=== PATIENT | female | born 1975 | race American Indian/Alaskan Native ===

== ENCOUNTER 2018-02-24 13:30 | Inpatient (IN) | payer MEDICAID ==
--- NOTE | 2018-02-24 14:23 | EDM.PDOC ---
ED HPI GENERAL MEDICAL PROBLEM - General Chief Complaint: Respiratory Problem Stated Complaint: ?PNEUMONIA Time Seen by Provider: 02/24/18 13:57 Source of Information: Reports: Patient History Limitations: Reports: No Limitations - History of Present Illness INITIAL COMMENTS - FREE TEXT/NARRATIVE: Juliet is a 42 year old female with PMH of fibromyalgia and hypertension who presents to the ED with c/o cough, fever, and shortness of breath. She reports she was seen on 02/22/2018 by Kavita Mcdaniel NP in [place] and told she had pneumonia. She reports she was started on Levaquin and breathing treatments. She reports she went in to see her again today and was told she could go to the ED to be admitted. Rather than presenting to [place]'s ED, she decided to come to [place]. She reports she has been feeling ill since Thursday02/19/2018. She does not feel the oral antibiotics have helped her. She is not responsive to questions when obtaining ROS, rather her daughter answers the questions for her. Daughter reports she has had a fever, as high as 101.1 deg F the past few days. This is improved by Tylenol. She reports she has had a productive cough, body aches, headache, shortness of breath, dizziness, decreased appetite, nausea, pleuritic chest pain, cough induced vomiting. Denies any sinus congestion, chest pain at rest, abdominal pain, urinary symptoms. Onset Date: 02/19/18 Duration: Getting Worse Location: Reports: Chest Associated Symptoms: Reports: Chest Pain, Cough, cough w sputum, Fever/Chills, Headaches, Loss of Appetite, Malaise, Nausea/Vomiting, Shortness of Breath, Weakness. 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, Other Medication(s) (Levaquin) Generalized Pain Score (Numeric/FACES): 9 - Related Data Allergies Allergy/AdvReac Type Severity Reaction Status Date / Time aspirin Allergy Hallucinati Verified 02/24/18 13:52 ons codeine Allergy Hallucinati Verified 02/24/18 13:52 ons cortisone Allergy Shortness Verified 02/24/18 13:52 of Breath iodine Allergy Cannot Verified 02/24/18 13:52 Remember seafood Allergy Respiratory Uncoded 02/24/18 16:12 Depression surgical dk Allergy Rash Uncoded 02/24/18 13:52 Home Meds: Home Meds Albuterol [Proventil HFA] 2 puff INH Q4H PRN 02/24/18 [History] Benzonatate 100 mg PO TID PRN 02/24/18 [History] Fluticasone/Salmeterol [Advair 250-50 Diskus] 1 puff INH BID 02/24/18 [History] Ipratropium/Albuterol Sulfate [Iprat-Albut 0.5-3(2.5) mg/3 ml] 3 ml IH Q4H PRN 02/24/18 [History] Levofloxacin 500 mg PO DAILY 02/24/18 [History] Ondansetron [Ondansetron Odt] 8 mg PO BID PRN 02/24/18 [History] ED ROS GENERAL - Review of Systems Review Of Systems: See Below Constitutional: Reports: Fever, Chills, Malaise, Weakness, Fatigue, Decreased Appetite HEENT: Denies: Ear Pain, Rhinitis, Sinus Problem, Throat Pain, Throat Swelling Respiratory: Reports: Shortness of Breath, Wheezing, Pleuritic Chest Pain, Cough , Sputum. Denies: Hemoptysis Cardiovascular: Reports: Dyspnea on Exertion, Lightheadedness. Denies: Chest Pain, Edema, Orthopnea, Palpitations, Syncope Endocrine: Reports: Fatigue GI/Abdominal: Reports: Nausea, Vomiting. Denies: Abdominal Pain, Diarrhea, Decreased Appetite : Reports: No Symptoms. Denies: Dysuria, Frequency, Urgency Musculoskeletal: Reports: Neck Pain Skin: Reports: No Symptoms Neurological: Reports: Dizziness, Headache, Weakness. Denies: Confusion, Numbness, Tingling ED EXAM, GENERAL - Physical Exam Exam: See Below Exam Limited By: No Limitations General Appearance: Alert, WD/WN, Moderate Distress Eye Exam: Bilateral Eye: EOMI, Normal Fundi, Normal Inspection, PERRL Ears: Normal External Exam, Normal Canal, Hearing Grossly Normal, Normal TMs Nose: Normal Inspection, Normal Mucosa, No Blood Throat/Mouth: Other (Patient refused) Head: Atraumatic, Normocephalic Neck: Normal Inspection, Supple, Non-Tender, Full Range of Motion Respiratory/Chest: No Respiratory Distress, No Accessory Muscle Use, Decreased Breath Sounds (LLL), Wheezing Cardiovascular: Normal Peripheral Pulses, Regular Rate, Rhythm, No Edema, No Gallop, No JVD, No Murmur, No Rub GI/Abdominal: Normal Bowel Sounds, Soft, Non-Tender, No Organomegaly, No Distention, No Abnormal Bruit, No Mass Back Exam: Normal Inspection, Full Range of Motion. No: CVA Tenderness (L), CVA Tenderness (R) Extremities: Normal Inspection, Normal Range of Motion, Non-Tender, Normal Capillary Refill, No Pedal Edema Neurological: Alert, Oriented, CN II-XII Intact, Normal Cognition, Normal Gait, Normal Reflexes, No Motor/Sensory Deficits Psychiatric: Flat Affect Skin Exam: Warm, Dry, Intact, Normal Color, No Rash Lymphatic: No Adenopathy Course - Vital Signs Last Recorded V/S: Last Vital Signs Temp 99.3 F 02/24/18 15:48 Pulse 86 02/24/18 15:48 Resp 18 02/24/18 15:48 BP 137/77 02/24/18 15:48 Pulse Ox 95 02/24/18 15:48 - Orders/Labs/Meds Orders: Active Orders 24 hr Category Date Time Status Chest 2V [CR] Stat Exams 02/24/18 13:52 Taken CULTURE BLOOD [BC] Stat Lab 02/24/18 14:15 Received CULTURE BLOOD [BC] Stat Lab 02/24/18 14:22 Received Medication Orders Acetaminophen (Tylenol) 650 mg PO Q4H PRN PRN Reason: Pain (Mild 1-3)/fever Albuterol (Ventolin Hfa) 0 gm INH Q4H PRN PRN Reason: Shortness of Breath Albuterol/Ipratropium (Duoneb 3.0-0.5 Mg/3 Ml) 3 ml NEB QID [facility] Last Admin: 02/24/18 16:09 Dose: 3 ml Albuterol/Ipratropium (Duoneb 3.0-0.5 Mg/3 Ml) 3 ml INH Q4H PRN PRN Reason: Shortness of Breath Ceftriaxone Sodium (Rocephin) 1 gm IVPUSH Q24H [facility] Last Admin: 02/24/18 17:04 Dose: 1 gm Enoxaparin Sodium (Lovenox) 40 mg SUBCUT Q24H [facility] Last Admin: 02/24/18 17:08 Dose: Not Given Azithromycin 500 mg/ Sodium (Chloride) 250 mls @ 250 mls/hr IV Q24H [facility] Last Admin: 02/24/18 17:16 Dose: 250 mls/hr Sodium Chloride (Normal Saline) 1,000 mls @ 75 mls/hr IV ASDIRECTED [facility] Last Admin: 02/24/18 16:05 Dose: 75 mls/hr Magnesium Hydroxide (Milk Of Magnesia) 30 ml PO Q12H PRN PRN Reason: Constipation Methylprednisolone Sodium Succinate (Solu-Medrol) 62.5 mg IVPUSH Q24H [facility] Last Admin: 02/24/18 17:04 Dose: 62.5 mg Miscellaneous Information (Remove Patch) 1 ea TRDERM DAILY [facility] Mometasone Furoate/Formoterol Fumar (Dulera 200-5 Mcg) 0 puff IH BIDRT [facility] Nicotine (Habitrol) 14 mg TRDERM DAILY [facility] Last Admin: 02/24/18 17:04 Dose: 14 mg Ptom Benzonatate [Benzonatate] 100 Mg 100 mg PO TID PRN PRN Reason: Cough Ondansetron HCl (Zofran) 4 mg IV Q6H PRN PRN Reason: Nausea/Vomiting Temazepam (Restoril) 15 mg PO BEDTIME PRN PRN Reason: Sleep Labs: Laboratory Tests 02/24/18 02/24/18 02/24/18 Range/Units 14:22 14:22 14:22 WBC 7.9 (5.0-10.0) 10^3/uL RBC 4.29 (4.00-5.50) 10^6/uL Hgb 13.0 (12.0-16.0) g/dL Hct 39.4 (37.0-47.0) % MCV 91.8 (82.0-94.0) fL MCH 30.3 (27.0-32.0) pg MCHC 33.0 (33.0-38.0) g/dL RDW Coeff of Sil 13.2 (11.0-15.0) % Plt Count 214 (150-400) 10^3/uL Neut % (Auto) 52.7 (35-85) % Lymph % (Auto) 34.9 (10-55) % [place] % (Auto) 8.1 (0-16) % Eos % (Auto) 3.9 (0-5) % Baso % (Auto) 0.4 (0-3) % Neut # (Auto) 4.14 (1.80-7.00) 10^3/uL Lymph # (Auto) 2.75 (1.00-4.80) 10^3/uL [place] # (Auto) 0.64 (0.00-0.80) 10^3/uL Eos # (Auto) 0.31 (0.00-0.45) 10^3/uL Baso # (Auto) 0.03 10^3/uL D-Dimer, Quantitative (0.00-0.50) Sodium 142 (136-145) mEq/L Potassium 3.8 (3.5-5.0) mEq/L Chloride 105 (98-106) mEq/L Carbon Dioxide 27 (21-32) mmol/L BUN 6 L (7-18) mg/dL Creatinine 0.9 (0.6-1.0) mg/dL Est Cr Clr Drug Dosing 79.19 mL/min Estimated GFR (MDRD) > 60 (>=60) mL/min Glucose 105 H (75-99) mg/dL Lactic Acid 0.8 (0.4-2.0) mmol/L Calcium 9.5 (8.4-10.1) mg/dL Total Bilirubin 0.3 (0.0-1.0) mg/dL AST 15 (15-37) U/L ALT 26 (12-78) U/L Alkaline Phosphatase 164 H (46-116) U/L C-Reactive Protein 7.2 H (0.2-0.8) mg/dL Total Protein 7.4 (6.4-8.2) g/dL Albumin 3.4 (3.4-5.0) g/dL 02/24/18 Range/Units 14:22 WBC (5.0-10.0) 10^3/uL RBC (4.00-5.50) 10^6/uL Hgb (12.0-16.0) g/dL Hct (37.0-47.0) % MCV (82.0-94.0) fL MCH (27.0-32.0) pg MCHC (33.0-38.0) g/dL RDW Coeff of Sil (11.0-15.0) % Plt Count (150-400) 10^3/uL Neut % (Auto) (35-85) % Lymph % (Auto) (10-55) % [place] % (Auto) (0-16) % Eos % (Auto) (0-5) % Baso % (Auto) (0-3) % Neut # (Auto) (1.80-7.00) 10^3/uL Lymph # (Auto) (1.00-4.80) 10^3/uL [place] # (Auto) (0.00-0.80) 10^3/uL Eos # (Auto) (0.00-0.45) 10^3/uL Baso # (Auto) 10^3/uL D-Dimer, Quantitative 0.79 H (0.00-0.50) Sodium (136-145) mEq/L Potassium (3.5-5.0) mEq/L Chloride (98-106) mEq/L Carbon Dioxide (21-32) mmol/L BUN (7-18) mg/dL Creatinine (0.6-1.0) mg/dL Est Cr Clr Drug Dosing mL/min Estimated GFR (MDRD) (>=60) mL/min Glucose (75-99) mg/dL Lactic Acid (0.4-2.0) mmol/L Calcium (8.4-10.1) mg/dL Total Bilirubin (0.0-1.0) mg/dL AST (15-37) U/L ALT (12-78) U/L Alkaline Phosphatase (46-116) U/L C-Reactive Protein (0.2-0.8) mg/dL Total Protein (6.4-8.2) g/dL Albumin (3.4-5.0) g/dL Meds: Medications Generic Name Dose Route Start Last Admin Trade Name Freq PRN Reason Stop Dose Admin Acetaminophen 650 mg 02/24/18 15:48 Tylenol PO Q4H PRN Pain (Mild 1-3)/fever Albuterol 0 gm 02/24/18 15:48 Ventolin Hfa INH Q4H PRN Shortness of Breath Albuterol/Ipratropium 3 ml 02/24/18 16:00 02/24/18 16:09 Duoneb 3.0-0.5 Mg/3 Ml NEB 3 ml QID [facility] Administration Albuterol/Ipratropium 3 ml 02/24/18 15:48 Duoneb 3.0-0.5 Mg/3 Ml INH Q4H PRN Shortness of Breath Ceftriaxone Sodium 1 gm 02/24/18 16:00 02/24/18 17:04 Rocephin IVPUSH 1 gm Q24H [facility] Administration Enoxaparin Sodium 40 mg 02/24/18 16:00 02/24/18 17:08 Lovenox SUBCUT Not Given Q24H [facility] Azithromycin 500 mg/ Sodium 250 mls @ 250 mls/hr 02/24/18 16:30 02/24/18 17: 16 Chloride IV 250 mls/hr Q24H [facility] Administration Sodium Chloride 1,000 mls @ 75 mls/hr 02/24/18 15:48 02/24/18 16:05 Normal Saline IV 75 mls/hr ASDIRECTED [facility] Administration Magnesium Hydroxide 30 ml 02/24/18 15:48 Milk Of Magnesia PO Q12H PRN Constipation Methylprednisolone Sodium Succinate 62.5 mg 02/24/18 17:00 02/24/18 17:04 Solu-Medrol IVPUSH 62.5 mg Q24H [facility] Administration Miscellaneous Information 1 ea 02/25/18 08:00 Remove Patch TRDERM DAILY [facility] Mometasone Furoate/Formoterol Fumar 0 puff 02/24/18 20:00 Dulera 200-5 Mcg IH BIDRT [facility] Nicotine 14 mg 02/24/18 15:48 02/24/18 17:04 Habitrol TRDERM 14 mg DAILY [facility] Administration Ptom Benzonatate 100 mg 02/24/18 15:48 [Benzonatate] 100 PO Mg TID PRN Cough Ondansetron HCl 4 mg 02/24/18 15:48 Zofran IV Q6H PRN Nausea/Vomiting Temazepam 15 mg 02/24/18 15:48 Restoril PO BEDTIME PRN Sleep Discontinued Medications Generic Name Dose Route Start Last Admin Trade Name Freq PRN Reason Stop Dose Admin Lactated Ringer's 1,000 mls @ 999 mls/hr 02/24/18 14:45 02/24/18 14:51 Ringers, Lactated IV 02/24/18 15:45 999 mls/hr .BOLUS ONE Administration Departure - Departure Time of Disposition: 15:35 Disposition: Admitted As Inpatient 66 Condition: Fair Clinical Impression: Pneumonia Qualifiers: Pneumonia type: due to unspecified organism Laterality: left Lung location: lower lobe of lung Qualified Code(s): J18.1 - Lobar pneumonia, unspecified organism Hypertension Qualifiers: Hypertension type: essential hypertension Qualified Code(s): I10 - Essential ( primary) hypertension - Discharge Information - Problem List & Annotations (1) Pneumonia SNOMED Code(s): 161411362 Code(s): J18.9 - PNEUMONIA, UNSPECIFIED ORGANISM Status: Acute Current Visit: Yes Qualifiers: Pneumonia type: due to unspecified organism Laterality: left Lung location: lower lobe of lung Qualified Code(s): J18.1 - Lobar pneumonia, unspecified organism (2) Hypertension SNOMED Code(s): 75744497 Code(s): I10 - ESSENTIAL (PRIMARY) HYPERTENSION Status: Acute Current Visit: Yes Qualifiers: Hypertension type: essential hypertension Qualified Code(s): I10 - Essential (primary) hypertension - Problem List Review Problem List Initiated/Reviewed/Updated: Yes - My Orders Last 24 Hours: My Active Orders 02/24/18 13:52 Chest 2V [CR] Stat 02/24/18 14:15 CULTURE BLOOD [BC] Stat 02/24/18 14:22 CULTURE BLOOD [BC] Stat - Assessment/Plan Admission H&P: Please use this note as an admission H&P Last 24 Hours: My Active Orders 02/24/18 13:52 Chest 2V [CR] Stat 02/24/18 14:15 CULTURE BLOOD [BC] Stat 02/24/18 14:22 CULTURE BLOOD [BC] Stat Plan: Labs stable CRP 7.2. WBC 7.9. D-Dimer slightly elevated at 0.79. Influenza negative. CXR reveals LLL focal consolidation. Discussed admission with Dr. Barnard Admit to acute IV antibiotics, steroids, and neb treatments
[2018-02-24 14:37] LABS: CHLORIDE,CL 105 mEq/L (98-106); SODIUM,NA 142 mEq/L (136-145)
[2018-02-24] MEDS ORDERED: Lactated Ringers 1,000 ML IV ONE (14:45)
[2018-02-24] MEDS ORDERED: Ondansetron 4 MG/2 ML SDV IV PRN (15:48)
[2018-02-24] MEDS ORDERED: Albuterol 8 GM Inhaler INH PRN (15:48)
[2018-02-24] MEDS ORDERED: Acetaminophen 325 MG Tab PO PRN (15:48)
[2018-02-24] MEDS ORDERED: Magnesium Hydroxide 400 MG/5 ML Susp 30 ML Cup PO PRN (15:48)
[2018-02-24] MEDS ORDERED: Temazepam 15 MG Cap PO PRN (15:48)
[2018-02-24] MEDS ORDERED: Albuterol/Ipratropium 3.0-0.5 MG/3 ML Neb Soln INH PRN (15:48)
[2018-02-24] MEDS: Sodium Chloride 0.9% 1,000 ML IV SCH (16:05)
[2018-02-24] MEDS: Albuterol/Ipratropium 3.0-0.5 MG/3 ML Neb Soln NEB SCH ×2 (16:09→19:28)
[2018-02-24] MEDS ORDERED: Azithromycin 500 MG in Sodium Chloride 0.9% 250 ML IV SCH (16:30)
[2018-02-24] MEDS ORDERED: methylPREDNISolone Sodium Succinate 125 MG/2 ML SDV IVPUSH SCH (17:00)
[2018-02-24] MEDS: cefTRIAXone 1 GM Vial IVPUSH SCH (17:04)
[2018-02-24] MEDS: Nicotine 14 MG/24 Hr Patch TRDERM SCH (17:04)
[2018-02-24] MEDS: Enoxaparin 40 MG/0.4 ML Syringe SUBCUT SCH (17:08)
[2018-02-24] MEDS ORDERED: Codeine/Promethazine 10-6.25 MG/5 ML Syrup 5 ML UD Cup PO PRN (17:22)
[2018-02-24] MEDS: Formoterol/Mometasone 200-5 MCG 8.8 GM Inhaler IH SCH (19:28)
[2018-02-24] MEDS: BENZONATATE 100 MG PO PRN (21:50)
[2018-02-25] MEDS: Sodium Chloride 0.9% 1,000 ML IV SCH ×2 (05:14→18:02)
[2018-02-25] MEDS: Remove Patch*NICOTINE TRDERM SCH (07:25)
[2018-02-25] MEDS: Formoterol/Mometasone 200-5 MCG 8.8 GM Inhaler IH SCH ×2 (07:25→19:11)
[2018-02-25] MEDS: Albuterol/Ipratropium 3.0-0.5 MG/3 ML Neb Soln NEB SCH ×4 (07:25→19:11)
[2018-02-25] MEDS: Nicotine 14 MG/24 Hr Patch TRDERM SCH (07:25)
[2018-02-25] MEDS: BENZONATATE 100 MG PO PRN (07:51)
--- NOTE | 2018-02-25 08:48 | PCM.PN ---
- General Info Date of Service: 02/25/18 Admission Dx/Problem (Free Text): LLL Pneumonia Functional Status: Reports: Tolerating Diet. Denies: Pain Controlled, Ambulating - Review of Systems General: Reports: Weakness, Fatigue, Malaise. Denies: Fever HEENT: Denies: Ear Pain, Sinus Congestion, Sore Throat Pulmonary: Reports: Shortness of Breath, Cough, Wheezing Cardiovascular: Reports: Chest Pain. Denies: Edema, Lightheadedness Gastrointestinal: Denies: Abdominal Pain, Nausea, Vomiting Genitourinary: Reports: No Symptoms Musculoskeletal: Reports: No Symptoms Skin: Reports: No Symptoms Neurological: Reports: No Symptoms - Patient Data Vitals - Most Recent: Last Vital Signs Temp 97.1 F 02/25/18 07:53 Pulse 75 02/25/18 07:53 Resp 16 02/25/18 07:53 BP 129/71 02/25/18 07:53 Pulse Ox 93 L 02/25/18 07:53 Weight - Most Recent: 189 lb 11.2 oz I&O - Last 24 Hours: Intake & Output 02/24/18 02/25/18 02/25/18 22:59 06:59 14:59 Intake Total 986 Balance 986 Lab Results Last 24 Hours: Laboratory Results - last 24 hr 02/24/18 02/24/18 02/24/18 Range/Units 14:22 14:22 14:22 WBC 7.9 (5.0-10.0) 10^3/uL RBC 4.29 (4.00-5.50) 10^6/uL Hgb 13.0 (12.0-16.0) g/dL Hct 39.4 (37.0-47.0) % MCV 91.8 (82.0-94.0) fL MCH 30.3 (27.0-32.0) pg MCHC 33.0 (33.0-38.0) g/dL RDW Coeff of Sil 13.2 (11.0-15.0) % Plt Count 214 (150-400) 10^3/uL Neut % (Auto) 52.7 (35-85) % Lymph % (Auto) 34.9 (10-55) % [place] % (Auto) 8.1 (0-16) % Eos % (Auto) 3.9 (0-5) % Baso % (Auto) 0.4 (0-3) % Neut # (Auto) 4.14 (1.80-7.00) 10^3/uL Lymph # (Auto) 2.75 (1.00-4.80) 10^3/uL [place] # (Auto) 0.64 (0.00-0.80) 10^3/uL Eos # (Auto) 0.31 (0.00-0.45) 10^3/uL Baso # (Auto) 0.03 10^3/uL D-Dimer, Quantitative (0.00-0.50) Sodium 142 (136-145) mEq/L Potassium 3.8 (3.5-5.0) mEq/L Chloride 105 (98-106) mEq/L Carbon Dioxide 27 (21-32) mmol/L BUN 6 L (7-18) mg/dL Creatinine 0.9 (0.6-1.0) mg/dL Est Cr Clr Drug Dosing 79.19 mL/min Estimated GFR (MDRD) > 60 (>=60) mL/min Glucose 105 H (75-99) mg/dL Lactic Acid 0.8 (0.4-2.0) mmol/L Calcium 9.5 (8.4-10.1) mg/dL Total Bilirubin 0.3 (0.0-1.0) mg/dL AST 15 (15-37) U/L ALT 26 (12-78) U/L Alkaline Phosphatase 164 H (46-116) U/L C-Reactive Protein 7.2 H (0.2-0.8) mg/dL Total Protein 7.4 (6.4-8.2) g/dL Albumin 3.4 (3.4-5.0) g/dL Urine Color (YELLOW) Urine Appearance (CLEAR) Urine pH (4.5-8.0) Ur Specific [place] (1.003-1.020) Urine Protein (NEGATIVE) mg/dL Urine Glucose (UA) (NEGATIVE) mg/dL Urine Ketones (NEGATIVE) mg/dL Urine Occult Blood (NEGATIVE) Urine Nitrite (NEGATIVE) Urine Bilirubin (NEGATIVE) Urine Urobilinogen (0.2-1.0) EU/dL Ur Leukocyte Esterase (NEGATIVE) Urine RBC (0-5) /HPF Urine WBC (0-5) /HPF Ur Squamous Epith Cells (NOT SEEN) /HPF 02/24/18 02/24/18 Range/Units 14:22 20:00 WBC (5.0-10.0) 10^3/uL RBC (4.00-5.50) 10^6/uL Hgb (12.0-16.0) g/dL Hct (37.0-47.0) % MCV (82.0-94.0) fL MCH (27.0-32.0) pg MCHC (33.0-38.0) g/dL RDW Coeff of Sil (11.0-15.0) % Plt Count (150-400) 10^3/uL Neut % (Auto) (35-85) % Lymph % (Auto) (10-55) % [place] % (Auto) (0-16) % Eos % (Auto) (0-5) % Baso % (Auto) (0-3) % Neut # (Auto) (1.80-7.00) 10^3/uL Lymph # (Auto) (1.00-4.80) 10^3/uL [place] # (Auto) (0.00-0.80) 10^3/uL Eos # (Auto) (0.00-0.45) 10^3/uL Baso # (Auto) 10^3/uL D-Dimer, Quantitative 0.79 H (0.00-0.50) Sodium (136-145) mEq/L Potassium (3.5-5.0) mEq/L Chloride (98-106) mEq/L Carbon Dioxide (21-32) mmol/L BUN (7-18) mg/dL Creatinine (0.6-1.0) mg/dL Est Cr Clr Drug Dosing mL/min Estimated GFR (MDRD) (>=60) mL/min Glucose (75-99) mg/dL Lactic Acid (0.4-2.0) mmol/L Calcium (8.4-10.1) mg/dL Total Bilirubin (0.0-1.0) mg/dL AST (15-37) U/L ALT (12-78) U/L Alkaline Phosphatase (46-116) U/L C-Reactive Protein (0.2-0.8) mg/dL Total Protein (6.4-8.2) g/dL Albumin (3.4-5.0) g/dL Urine Color Yellow (YELLOW) Urine Appearance Clear (CLEAR) Urine pH 6.5 (4.5-8.0) Ur Specific [place] 1.010 (1.003-1.020) Urine Protein Negative (NEGATIVE) mg/dL Urine Glucose (UA) Negative (NEGATIVE) mg/dL Urine Ketones Negative (NEGATIVE) mg/dL Urine Occult Blood Trace-intact H (NEGATIVE) Urine Nitrite Negative (NEGATIVE) Urine Bilirubin Negative (NEGATIVE) Urine Urobilinogen 0.2 (0.2-1.0) EU/dL Ur Leukocyte Esterase Negative (NEGATIVE) Urine RBC 0-5 (0-5) /HPF Urine WBC Not seen (0-5) /HPF Ur Squamous Epith Cells Occasional H (NOT SEEN) /HPF [place] Results Last 24 Hours: Microbiology 02/24/18 14:22 Influenza Type A Antigen Screen - Final Nasal, Unspecified NEGATIVE INFLUENZA A VIRUS AG Influenza Type B Antigen Screen - Final NEGATIVE INFLUENZA B VIRUS AG Med Orders - Current: Current Medications Acetaminophen (Tylenol) 650 mg PO Q4H PRN PRN Reason: Pain (Mild 1-3)/fever Albuterol (Ventolin Hfa) 0 gm INH Q4H PRN PRN Reason: Shortness of Breath Albuterol/Ipratropium (Duoneb 3.0-0.5 Mg/3 Ml) 3 ml NEB QID [facility] Last Admin: 02/25/18 07:25 Dose: 3 ml Albuterol/Ipratropium (Duoneb 3.0-0.5 Mg/3 Ml) 3 ml INH Q4H PRN PRN Reason: Shortness of Breath Ceftriaxone Sodium (Rocephin) 1 gm IVPUSH Q24H [facility] Last Admin: 02/24/18 17:04 Dose: 1 gm Enoxaparin Sodium (Lovenox) 40 mg SUBCUT Q24H [facility] Last Admin: 02/24/18 17:08 Dose: Not Given Guaifenesin/Phenylephrine HCl (Robitussin Dm) 10 ml PO Q6H PRN PRN Reason: Cough Azithromycin 500 mg/ Sodium (Chloride) 250 mls @ 250 mls/hr IV Q24H [facility] Last Admin: 02/24/18 17:16 Dose: 250 mls/hr Sodium Chloride (Normal Saline) 1,000 mls @ 75 mls/hr IV ASDIRECTED [facility] Last Admin: 02/25/18 05:14 Dose: 75 mls/hr Magnesium Hydroxide (Milk Of Magnesia) 30 ml PO Q12H PRN PRN Reason: Constipation Methylprednisolone Sodium Succinate (Solu-Medrol) 62.5 mg IVPUSH Q24H [facility] Last Admin: 02/24/18 17:04 Dose: 62.5 mg Methylprednisolone Sodium Succinate (Solu-Medrol) 62.5 mg IVPUSH Q12H [facility] Miscellaneous Information (Remove Patch) 1 ea TRDERM DAILY [facility] Last Admin: 02/25/18 07:25 Dose: 1 ea Mometasone Furoate/Formoterol Fumar (Dulera 200-5 Mcg) 0 puff IH BIDRT [facility] Last Admin: 02/25/18 07:25 Dose: 2 puff Nicotine (Habitrol) 14 mg TRDERM DAILY [facility] Last Admin: 02/25/18 07:25 Dose: 14 mg Ptom Benzonatate [Benzonatate] 100 Mg 100 mg PO TID PRN PRN Reason: Cough Last Admin: 02/25/18 07:51 Dose: 100 mg Ondansetron HCl (Zofran) 4 mg IV Q6H PRN PRN Reason: Nausea/Vomiting Last Admin: 02/24/18 21:28 Dose: 4 mg Temazepam (Restoril) 15 mg PO BEDTIME PRN PRN Reason: Sleep Last Admin: 02/24/18 21:51 Dose: 15 mg Discontinued Medications Lactated Ringer's (Ringers, Lactated) 1,000 mls @ 999 mls/hr IV .BOLUS ONE Stop: 02/24/18 15:45 Last Admin: 02/24/18 14:51 Dose: 999 mls/hr Promethazine HCl/Codeine (Phenergan With Codeine) 5 - 10 ml PO Q6H PRN PRN Reason: Cough - Exam General: Alert, Oriented HEENT: Mucous Membr. Moist/[place] Neck: Supple Lungs: Rales (LLL), Wheezing Cardiovascular: Regular Rate, Regular Rhythm GI/Abdominal Exam: Normal Bowel Sounds, Soft, Non-Tender Extremities: Normal Inspection, No Pedal Edema Skin: Warm, Dry Neurological: No New Focal Deficit - Problem List & Annotations (1) Pneumonia SNOMED Code(s): 236156503 Code(s): J18.9 - PNEUMONIA, UNSPECIFIED ORGANISM Status: Acute Priority: High Current Visit: Yes Qualifiers: Pneumonia type: due to unspecified organism Laterality: left Lung location: lower lobe of lung Qualified Code(s): J18.1 - Lobar pneumonia, unspecified organism - Problem List Review Problem List Initiated/Reviewed/Updated: Yes - My Orders Last 24 Hours: My Active Orders 02/25/18 08:39 Dextromethorphan/guaiFENesin [Robitussin DM] 10 ml PO Q6H PRN 02/25/18 08:45 methylPREDNISolone Sod Succ [Solu-MEDROL] 62.5 mg IVPUSH Q12H - Assessment Assessment:: LLL Pneumonia - Plan Plan:: Patient not feeling well. States has been coughing a great deal and it hurts in her ribs to take a deep breath or cough. She is afebrile. Refused labs this am. Unable to take cough medicine last night due to allergies so will switch to Robitussin DM today. Appetite fair. She states "not able to do anything due to discomfort". Lung sounds noted wheezing T/O and rales in LLL. Will start IV Solu Medrol 62.5 mg BID today. Robitussin DM for cough. Continue Zithromax and Rocephin for pneumonia. Neb treatments as directed. Attempt to obtain labs again tomorrow.
[2018-02-25] MEDS: methylPREDNISolone Sodium Succinate 125 MG/2 ML SDV IVPUSH SCH ×2 (09:07→16:15)
[2018-02-25] MEDS: guaiFENesin/Dextromethorphan 100-10 MG/5 ML Soln 5 ML Cup PO PRN ×2 (13:03→19:13)
[2018-02-25] MEDS ORDERED: Azithromycin 500 MG in Sodium Chloride 0.9% 250 ML IV SCH (16:00)
[2018-02-25] MEDS: cefTRIAXone 1 GM Vial IVPUSH SCH (16:13)
[2018-02-25] MEDS: Enoxaparin 40 MG/0.4 ML Syringe SUBCUT SCH (16:13)
[2018-02-26 07:17] LABS: CHLORIDE,CL 108 mEq/L (98-106); SODIUM,NA 141 mEq/L (136-145)
[2018-02-26] MEDS: methylPREDNISolone Sodium Succinate 125 MG/2 ML SDV IVPUSH SCH (07:38)
[2018-02-26] MEDS: Remove Patch*NICOTINE TRDERM SCH (07:40)
[2018-02-26] MEDS: Nicotine 14 MG/24 Hr Patch TRDERM SCH (07:41)
[2018-02-26] MEDS: Albuterol/Ipratropium 3.0-0.5 MG/3 ML Neb Soln NEB SCH (07:43)
[2018-02-26] MEDS: Formoterol/Mometasone 200-5 MCG 8.8 GM Inhaler IH SCH (07:45)
--- NOTE | 2018-02-26 09:19 | PCM.DCSUM1 ---
Discharge Summary - Hospital Course Free Text/Narrative:: Patient presented to ER with ongoing cough and shortness of breath. Had been seeing Kavita Mcdaniel in [place] over the last month or so for intermittent issues with bronchitis. She was treated with 2 different antibiotics but was not responding well. Followed up with Kavita on Thursday and she felt she needed to be admitted for pneumonia and advised her to go to the ER as she does not have admitting privileges there. Patient did not want to be admitted to the [facility] so presented here. She had a very harsh cough. Productive at times. Noted to have wheezing throughout. Labs show a normal WBC, elevated CRP at 7.2. Chest xray shows left lower lobe infiltrate. Admitted and started on Rocephin and Zithromax, Solu Medrol and DuoNebs. Diagnosis: Stroke: No Modified Vida Scale: No Symptoms at All Modified Donnie Scale Score: 0 - Discharge Data Discharge Date: 02/26/18 Discharge Disposition: Home, Self-Care 01 Condition: Good - Discharge Diagnosis/Problem(s) (1) Pneumonia SNOMED Code(s): 990417415 ICD Code: J18.9 - PNEUMONIA, UNSPECIFIED ORGANISM Status: Acute Priority : High Current Visit: Yes Qualifiers: Pneumonia type: due to unspecified organism Laterality: left Lung location: lower lobe of lung Qualified Code(s): J18.1 - Lobar pneumonia, unspecified organism - Patient Summary/Data Complications: none Hospital Course: Patient does feel somewhat better. She does continue to have a tight cough, productive at times. Feels she is getting more air now. Oxygen sats have been over 94% on room air. Remains afebrile. Lung sounds are improved, decreased wheezing but does still have noted rales in the LLL. Labs improved. WBC mildly elevated due to steroids, CRP down to 2.0. Has been more over the last 24 hours and tolerating better. Will discharge home. Continue Levaquin daily. Prednisone 40 mg daily for 5 days. DuoNebs and Advair. Can use her tessalon pearles for cough. - Patient Instructions Diet: Usual Diet as Tolerated Activity: As Tolerated - Discharge Plan Prescriptions/Med Rec: Albuterol/Ipratropium [DuoNeb 3.0-0.5 MG/3 ML] 3 ml NEB QID #28 neb predniSONE [Prednisone] 20 mg PO DAILY #10 tablet Home Medications: Home Meds Albuterol [Proventil HFA] 2 puff INH Q4H PRN 02/24/18 [History] Benzonatate 100 mg PO TID PRN 02/24/18 [History] Fluticasone/Salmeterol [Advair 250-50 Diskus] 1 puff INH BID 02/24/18 [History] Ipratropium/Albuterol Sulfate [Iprat-Albut 0.5-3(2.5) mg/3 ml] 3 ml IH Q4H PRN 02/24/18 [History] Levofloxacin 500 mg PO DAILY 02/24/18 [History] Ondansetron [Ondansetron ODT] 8 mg PO BID PRN 02/24/18 [History] Albuterol/Ipratropium [DuoNeb 3.0-0.5 MG/3 ML] 3 ml NEB QID #28 neb 02/26/18 [Rx ] predniSONE [Prednisone] 20 mg PO DAILY #10 tablet 02/26/18 [Rx] Forms: ED Department Discharge Referrals: Trav Barnard MD [Primary Care Provider] - (Follow up with Dr. Barnard in 10 days ) - Discharge Summary/Plan Comment DC Time >30 min.: No Discharge Summary/Plan Comment: Discharge home Levaquin 500 mg daily for 7 days Prednisone 40 mg daily for 5 days DuoNebs QID for 7 days ProAir for wheezing as needed Tessalon pearles for cough as needed No work for one week - General Info Date of Service: 02/26/18 Admission Dx/Problem (Free Text: LLL Pneumonia Functional Status: Reports: Pain Controlled, Tolerating Diet, Ambulating - Review of Systems General: Reports: Malaise. Denies: Fever, Weakness, Fatigue HEENT: Reports: Rhinitis Pulmonary: Reports: Shortness of Breath, Cough, Sputum, Wheezing Cardiovascular: Denies: Chest Pain, Edema, Lightheadedness Gastrointestinal: Denies: Abdominal Pain, Nausea, Vomiting Genitourinary: Reports: No Symptoms Musculoskeletal: Reports: No Symptoms Skin: Reports: No Symptoms Neurological: Reports: No Symptoms Psychiatric: Reports: No Symptoms - Patient Data Vitals - Most Recent: Last Vital Signs Temp 98.0 F 02/26/18 07:46 Pulse 86 02/26/18 07:46 Resp 20 06/15/18 07:46 BP 143/84 H 02/26/18 07:46 Pulse Ox 97 02/26/18 07:46 Weight - Most Recent: 189 lb 11.2 oz I&O - Last 24 hours: Intake & Output 02/25/18 02/26/18 02/26/18 22:59 06:59 14:59 Intake Total 960 Balance 960 Lab Results - Last 24 hrs: Laboratory Results - last 24 hr 02/26/18 02/26/18 Range/Units 07:00 07:00 WBC 13.9 H (5.0-10.0) 10^3/uL RBC 3.56 L (4.00-5.50) 10^6/uL Hgb 10.7 L (12.0-16.0) g/dL Hct 33.0 L (37.0-47.0) % MCV 92.7 (82.0-94.0) fL MCH 30.1 (27.0-32.0) pg MCHC 32.4 L (33.0-38.0) g/dL RDW Coeff of Sil 13.2 (11.0-15.0) % Plt Count 244 (150-400) 10^3/uL Neut % (Auto) 72.4 (35-85) % Lymph % (Auto) 22.1 (10-55) % [place] % (Auto) 5.4 (0-16) % Eos % (Auto) 0 (0-5) % Baso % (Auto) 0.1 (0-3) % Neut # (Auto) 10.07 H (1.80-7.00) 10^3/uL Lymph # (Auto) 3.08 (1.00-4.80) 10^3/uL [place] # (Auto) 0.75 (0.00-0.80) 10^3/uL Eos # (Auto) 0.00 (0.00-0.45) 10^3/uL Baso # (Auto) 0.01 10^3/uL Sodium 141 (136-145) mEq/L Potassium 3.8 (3.5-5.0) mEq/L Chloride 108 H (98-106) mEq/L Carbon Dioxide 23 (21-32) mmol/L BUN 11 D (7-18) mg/dL Creatinine 0.8 (0.6-1.0) mg/dL Est Cr Clr Drug Dosing 89.08 mL/min Estimated GFR (MDRD) > 60 (>=60) mL/min Glucose 112 H (75-99) mg/dL Calcium 8.8 (8.4-10.1) mg/dL C-Reactive Protein 2.0 H (0.2-0.8) mg/dL NICOLASA Results - Last 24 hrs: Microbiology 02/24/18 14:15 Aerobic Blood Culture - Preliminary Blood - Venous NO GROWTH AFTER 1 DAY Anaerobic Blood Culture - Preliminary NO GROWTH AFTER 1 DAY 02/24/18 14:22 Aerobic Blood Culture - Preliminary Blood - Venous - Lab Draw NO GROWTH AFTER 1 DAY Anaerobic Blood Culture - Preliminary NO GROWTH AFTER 1 DAY Med Orders - Current: Current Medications Acetaminophen (Tylenol) 650 mg PO Q4H PRN PRN Reason: Pain (Mild 1-3)/fever Last Admin: 02/25/18 11:16 Dose: 650 mg Albuterol (Ventolin Hfa) 0 gm INH Q4H PRN PRN Reason: Shortness of Breath Albuterol/Ipratropium (Duoneb 3.0-0.5 Mg/3 Ml) 3 ml NEB QID [facility] Last Admin: 02/26/18 07:43 Dose: 3 ml Albuterol/Ipratropium (Duoneb 3.0-0.5 Mg/3 Ml) 3 ml INH Q4H PRN PRN Reason: Shortness of Breath Ceftriaxone Sodium (Rocephin) 1 gm IVPUSH Q24H [facility] Last Admin: 02/25/18 16:13 Dose: 1 gm Enoxaparin Sodium (Lovenox) 40 mg SUBCUT Q24H [facility] Last Admin: 02/25/18 16:13 Dose: Not Given Guaifenesin/Phenylephrine HCl (Robitussin Dm) 10 ml PO Q6H PRN PRN Reason: Cough Last Admin: 02/25/18 19:13 Dose: 10 ml Sodium Chloride (Normal Saline) 1,000 mls @ 75 mls/hr IV ASDIRECTED [facility] Last Admin: 02/25/18 18:02 Dose: 75 mls/hr Azithromycin 500 mg/ Sodium (Chloride) 250 mls @ 250 mls/hr IV DAILY@1600 [facility] Last Admin: 02/25/18 16:15 Dose: 250 mls/hr Magnesium Hydroxide (Milk Of Magnesia) 30 ml PO Q12H PRN PRN Reason: Constipation Methylprednisolone Sodium Succinate (Solu-Medrol) 62.5 mg IVPUSH BID@0800,1600 [facility] Last Admin: 02/26/18 07:38 Dose: 62.5 mg Miscellaneous Information (Remove Patch) 1 ea TRDERM DAILY [facility] Last Admin: 02/25/18 07:25 Dose: 1 ea Mometasone Furoate/Formoterol Fumar (Dulera 200-5 Mcg) 0 puff IH BIDRT [facility] Last Admin: 02/26/18 07:45 Dose: 1 puff Nicotine (Habitrol) 14 mg TRDERM DAILY [facility] Last Admin: 02/26/18 07:41 Dose: 14 mg Ptom Benzonatate [Benzonatate] 100 Mg 100 mg PO TID PRN PRN Reason: Cough Last Admin: 02/25/18 07:51 Dose: 100 mg Ondansetron HCl (Zofran) 4 mg IV Q6H PRN PRN Reason: Nausea/Vomiting Last Admin: 02/24/18 21:28 Dose: 4 mg Temazepam (Restoril) 15 mg PO BEDTIME PRN PRN Reason: Sleep Last Admin: 02/24/18 21:51 Dose: 15 mg Discontinued Medications Lactated Ringer's (Ringers, Lactated) 1,000 mls @ 999 mls/hr IV .BOLUS ONE Stop: 02/24/18 15:45 Last Admin: 02/24/18 14:51 Dose: 999 mls/hr Azithromycin 500 mg/ Sodium (Chloride) 250 mls @ 250 mls/hr IV Q24H [facility] Last Admin: 02/24/18 17:16 Dose: 250 mls/hr Methylprednisolone Sodium Succinate (Solu-Medrol) 62.5 mg IVPUSH Q24H [facility] Last Admin: 02/24/18 17:04 Dose: 62.5 mg Promethazine HCl/Codeine (Phenergan With Codeine) 5 - 10 ml PO Q6H PRN PRN Reason: Cough - Exam General: Reports: Alert, Oriented HEENT: Reports: Mucous Membr. Moist/[employer] Neck: Reports: Supple Lungs: Reports: Decreased Breath Sounds, Rales (LLL) Cardiovascular: Reports: Regular Rate, Regular Rhythm GI/Abdominal Exam: Normal Bowel Sounds, Soft, Non-Tender Extremities: Normal Inspection, No Pedal Edema Skin: Reports: Warm, Dry Neurological: Reports: No New Focal Deficit
== END 2018-02-26 11:45 | disposition home or self-care (01) | DRG 195 ==
LOC: CC.ED 13:30 → CC.MS 15:07 → UNDOADMIN 15:10 → CC.MS 15:10
PROVIDERS: ADMIT Nurse Practitioner Family; ATTEND Family Medicine
DX: R50.9 Fever, unspecified (principal); R05 Cough; J18.9 Pneumonia, unspecified organism; I10 Essential (primary) hypertension; Z88.5 Allergy status to narcotic agent; Z91.013 Allergy to seafood; Z88.8 Allergy status to other drugs, medicaments and biological substances; Z91.048 Other nonmedicinal substance allergy status; Z79.51 Long term (current) use of inhaled steroids
CPT/HCPCS: 36415; 71046; 80053; 83605; 85025; 85379; 86140; 87040 ×2; 87804 ×2; 99284; J7120; 80048; 81001; 94640; A9270-GY; J0456; J0696; J2405; J2930; J7030; J7050

== ENCOUNTER 2018-12-09 14:04 | Inpatient (IN) | payer MEDICAID ==
[2018-12-09] MEDS ORDERED: Temazepam 15 MG Cap PO PRN (17:09)
[2018-12-09] MEDS ORDERED: Sodium Chloride 0.9% 10 ML Syringe FLUSH PRN (17:09)
[2018-12-09] MEDS ORDERED: Albuterol 0.083% 2.5 MG/3 ML Neb Soln NEB PRN (17:09)
[2018-12-09] MEDS ORDERED: Ondansetron 4 MG Tab.DIS PO PRN (17:13)
[2018-12-09 17:37] LABS: CHLORIDE,CL 104 mEq/L (98-106); SODIUM,NA 142 mEq/L (136-145)
[2018-12-09] MEDS: cefTRIAXone 1 GM Vial IVPUSH SCH (18:24)
[2018-12-09] MEDS: Enoxaparin 30 MG/0.3 ML Syringe SUBCUT SCH (18:26)
[2018-12-09] MEDS: Azithromycin 500 MG in Sodium Chloride 0.9% 250 ML IV SCH (18:27)
[2018-12-09] MEDS: Pregabalin 25 MG Cap PO SCH (19:46)
[2018-12-09] MEDS: Albuterol/Ipratropium 3.0-0.5 MG/3 ML Neb Soln NEB SCH (19:47)
[2018-12-10] MEDS: Pantoprazole 40 MG Tab.CR PO SCH (06:52)
[2018-12-10] MEDS: Pregabalin 25 MG Cap PO SCH ×2 (08:02→19:50)
[2018-12-10] MEDS: Albuterol/Ipratropium 3.0-0.5 MG/3 ML Neb Soln NEB SCH ×4 (08:02→19:50)
[2018-12-10] MEDS: methylPREDNISolone Sodium Succinate 125 MG/2 ML SDV IVPUSH SCH ×2 (09:16→17:07)
--- NOTE | 2018-12-10 13:58 | PCM.PN ---
- General Info Date of Service: 12/10/18 Admission Dx/Problem (Free Text): Suspected gram negative pneumonia Functional Status: Reports: Pain Controlled, Tolerating Diet, Ambulating - Review of Systems General: Reports: Weakness, Fatigue, Malaise. Denies: Fever HEENT: Denies: Ear Pain, Sinus Congestion, Visual Changes Pulmonary: Reports: Shortness of Breath, Cough, Wheezing Cardiovascular: Reports: No Symptoms Gastrointestinal: Denies: Abdominal Pain, Nausea, Vomiting Genitourinary: Reports: No Symptoms Musculoskeletal: Reports: No Symptoms Skin: Reports: No Symptoms Neurological: Reports: No Symptoms Psychiatric: Reports: No Symptoms - Patient Data Vitals - Most Recent: Last Vital Signs Temp 98.1 F 12/10/18 11:43 Pulse 86 12/10/18 11:43 Resp 20 12/10/18 11:43 BP 141/80 H 12/10/18 11:43 Pulse Ox 97 12/10/18 11:43 Weight - Most Recent: 204 lb 11.2 oz Lab Results Last 24 Hours: Laboratory Results - last 24 hr 12/09/18 12/09/18 Range/Units 17:25 17:25 WBC 9.9 (5.0-10.0) 10^3/uL RBC 4.52 (4.00-5.50) 10^6/uL Hgb 14.0 (12.0-16.0) g/dL Hct 41.3 (37.0-47.0) % MCV 91.4 (82.0-94.0) fL MCH 31.0 (27.0-32.0) pg MCHC 33.9 (33.0-38.0) g/dL RDW Coeff of Sil 13.2 (11.0-15.0) % Plt Count 242 (150-400) 10^3/uL Neut % (Auto) 64.7 (35-85) % Lymph % (Auto) 27.5 (10-55) % [place] % (Auto) 6.1 (0-16) % Eos % (Auto) 1.4 (0-5) % Baso % (Auto) 0.3 (0-3) % Neut # (Auto) 6.41 (1.80-7.00) 10^3/uL Lymph # (Auto) 2.72 (1.00-4.80) 10^3/uL [place] # (Auto) 0.60 (0.00-0.80) 10^3/uL Eos # (Auto) 0.14 (0.00-0.45) 10^3/uL Baso # (Auto) 0.03 10^3/uL Sodium 142 (136-145) mEq/L Potassium 3.4 L (3.5-5.0) mEq/L Chloride 104 (98-106) mEq/L Carbon Dioxide 28 (21-32) mmol/L BUN 14 (7-18) mg/dL Creatinine 1.0 (0.6-1.0) mg/dL Est Cr Clr Drug Dosing TNP Estimated GFR (MDRD) > 60 (>=60) mL/min Glucose 108 H (75-99) mg/dL Calcium 9.4 (8.4-10.1) mg/dL C-Reactive Protein 0.2 (0.2-0.8) mg/dL Med Orders - Current: Current Medications Acetaminophen (Tylenol) 650 mg PO Q4H PRN PRN Reason: Pain (Mild 1-3)/fever Albuterol (Proventil Neb Soln) 2.5 mg NEB Q2H PRN PRN Reason: Shortness Of Breath/wheezing Albuterol/Ipratropium (Duoneb 3.0-0.5 Mg/3 Ml) 3 ml NEB QIDRT [facility] Last Admin: 12/10/18 11:41 Dose: 3 ml Ceftriaxone Sodium (Rocephin) 1 gm IVPUSH Q24H [facility] Last Admin: 12/09/18 18:24 Dose: 1 gm Diphenhydramine HCl (Benadryl) 25 mg PO WE [facility] Enoxaparin Sodium (Lovenox) 30 mg SUBCUT Q24H [facility] Last Admin: 12/09/18 18:26 Dose: Not Given Azithromycin 500 mg/ Sodium (Chloride) 250 mls @ 250 mls/hr IV Q24H [facility] Last Admin: 12/09/18 18:27 Dose: 250 mls/hr Methylprednisolone Sodium Succinate (Solu-Medrol) 62.5 mg IVPUSH BID@0800,1600 [facility] Last Admin: 12/10/18 09:16 Dose: 62.5 mg Ondansetron HCl (Zofran Odt) 8 mg PO Q4H PRN PRN Reason: Nausea Pantoprazole Sodium (Protonix) 40 mg PO DAILY@0700 [facility] Last Admin: 12/10/18 06:52 Dose: 40 mg Pregabalin (Lyrica) 25 mg PO BID [facility] Last Admin: 12/10/18 08:02 Dose: 25 mg Sodium Chloride (Saline Flush) 10 ml FLUSH ASDIRECTED PRN PRN Reason: Keep Vein Open Temazepam (Restoril) 15 mg PO BEDTIME PRN PRN Reason: Sleep - Exam General: Alert, Oriented HEENT: Mucous Membr. Moist/[place] Neck: Supple Lungs: Decreased Breath Sounds, Wheezing GI/Abdominal Exam: Normal Bowel Sounds, Soft, Non-Tender Extremities: Normal Inspection, No Pedal Edema Skin: Warm, Dry Neurological: No New Focal Deficit - Problem List & Annotations (1) Pneumonia SNOMED Code(s): 652486242 Code(s): J18.9 - PNEUMONIA, UNSPECIFIED ORGANISM Status: Acute Priority: High Current Visit: Yes Qualifiers: Pneumonia type: due to other aerobic Gram-negative bacteria Laterality: left Lung location: lower lobe of lung Qualified Code(s): J15.6 - Pneumonia due to other Gram-negative bacteria - Problem List Review Problem List Initiated/Reviewed/Updated: Yes - My Orders Last 24 Hours: My Active Orders 12/10/18 08:15 methylPREDNISolone Sod Succ [Solu-MEDROL] 62.5 mg IVPUSH BID@0800,1600 - Assessment Assessment:: Suspected gram negative LLL pneumonia - Plan Plan:: Patient continues to have frequent tight cough. Feels short of breath. Expiratory wheezing throughout. Patient states has GI concerns with steroids but has been able to take IV steroids in the past. Oxygen sats are stable on room air. Afebrile. Labs on admit show normal WBC of 9.9, CRP of 0.2. Potassium slightly low at 3.4. Will continue with IV Rocephin and Zithromax. Add Solu Medrol. DuoNebs every 4 hours as needed. Inappropriate for discharge as still continues to wheeze and feel short of breath. Repeat labs in am.
[2018-12-10] MEDS: Enoxaparin 30 MG/0.3 ML Syringe SUBCUT SCH (17:07)
[2018-12-10] MEDS: Nicotine 14 MG/24 Hr Patch TRDERM SCH (19:10)
[2018-12-10] MEDS: Azithromycin 500 MG in Sodium Chloride 0.9% 250 ML IV SCH (19:11)
[2018-12-10] MEDS: cefTRIAXone 1 GM Vial IVPUSH SCH (19:11)
[2018-12-10] MEDS: Acetaminophen 325 MG Tab PO PRN (19:25)
[2018-12-11] MEDS: Pantoprazole 40 MG Tab.CR PO SCH (07:03)
[2018-12-11 07:40] LABS: CHLORIDE,CL 106 mEq/L (98-106); SODIUM,NA 142 mEq/L (136-145)
[2018-12-11] MEDS: Pregabalin 25 MG Cap PO SCH (08:04)
[2018-12-11] MEDS: Albuterol/Ipratropium 3.0-0.5 MG/3 ML Neb Soln NEB SCH ×2 (08:04→11:41)
[2018-12-11] MEDS: Nicotine 14 MG/24 Hr Patch TRDERM SCH (08:05)
[2018-12-11] MEDS: Acetaminophen 325 MG Tab PO PRN (08:11)
[2018-12-11] MEDS: methylPREDNISolone Sodium Succinate 125 MG/2 ML SDV IVPUSH SCH (08:12)
[2018-12-11] MEDS: cefTRIAXone 1 GM Vial IVPUSH SCH (10:27)
[2018-12-11] MEDS: Azithromycin 500 MG in Sodium Chloride 0.9% 250 ML IV SCH (10:33)
--- NOTE | 2018-12-11 12:41 | PCM.DCSUM1 ---
Discharge Summary - Discharge Data Discharge Date: 12/11/18 Discharge Disposition: Home, Self-Care 01 Condition: Good - Discharge Diagnosis/Problem(s) (1) Pneumonia SNOMED Code(s): 572408680 ICD Code: J18.9 - PNEUMONIA, UNSPECIFIED ORGANISM Status: Acute Priority : High Qualifiers: Pneumonia type: due to other aerobic Gram-negative bacteria Laterality: left Lung location: lower lobe of lung Qualified Code(s): J15.6 - Pneumonia due to other Gram-negative bacteria - Patient Summary/Data Hospital Course: Juliet is a 43 year old female who was admitted to the hospital 12/09/2018 with questionable LLL pneumonia. Had reportedly been seen by an outside provider and told she had LLL pneumonia. Was started on oral antibiotics and was worsening so presented to the clinic to see Dr. Barnard and was admitted. Per patient report initial CXR did show LLL infiltrate. Repeat CXR on admission was negative for pneumonia. She reports she has chronic lung issues and is always short of breath. Does have compromised immunity so reports she is sick often. On day of discharge, she was requesting to go home. Reports she is feeling overall better. Does continue to cough and feel short of breath. Lung sounds remain diminished but wheezing improved. VS have been stable on RA. WBC did increase from 9.9 to 14.8 but CRP remains normal. Do suspect steroid induced leukocytosis. Labs otherwise stable. She reports she has appointment with photographer still on Thursday12.14.2018. She will be discharged home on 4 additional days of Levaquin and 4 additional days of prednisone. Is advised to do DuoNebs QID until f/u appointment with Dr. Barnard 12.16.2018. Will recheck labs prior to appointment. Patient verbalized understanding and was agreeable to discharge home. She was discharged from facility in satisfactory condition. - Patient Instructions Diet: Usual Diet as Tolerated Activity: As Tolerated, No Strenuous Activities Notify Provider of: Fever, Increased Pain, Nausea and/or Vomiting - Discharge Plan *PRESCRIPTION DRUG MONITORING PROGRAM REVIEWED*: Not Applicable *COPY OF PRESCRIPTION DRUG MONITORING REPORT IN PATIENT HEATHER: Not Applicable Prescriptions/Med Rec: Ipratropium/Albuterol Sulfate [Iprat-Albut 0.5-3(2.5) mg/3 ml] 3 ml IH QID 5 Days #30 ampul.neb levoFLOXacin [Levaquin] 500 mg PO DAILY 4 Days #4 tab predniSONE [Prednisone] 40 mg PO DAILY 4 Days #8 tablet Home Medications: Home Meds Levofloxacin 500 mg PO DAILY 02/24/18 [History] Ondansetron [Ondansetron ODT] 8 mg PO Q4HR PRN 02/24/18 [History] Acetaminophen 650 mg PO WE 12/09/18 [History] Albuterol [Proventil HFA] 2 inh INH Q4H PRN 12/09/18 [History] Albuterol/Ipratropium [DuoNeb 3.0-0.5 MG/3 ML] 3 ml NEB QID PRN 12/09/18 [ History] Immun Glob G (IgG)/Gly/Iga 50+ [Gamunex-C 1 Gram/10 ml Vial] 11 gm SQ WE [History] Lidocaine/Prilocaine [Lidocaine-Prilocaine Cream] 1 applic TOP WE 12/09/18 [ History] Omeprazole 40 mg PO DAILY 12/09/18 [History] Ondansetron [Zofran] 8 mg PO WE 12/09/18 [History] Pregabalin [Lyrica] 25 mg PO BID 12/09/18 [History] Tiotropium [place] [Spiriva Respimat] 2 inh INH DAILY 12/09/18 [History] diphenhydrAMINE [Benadryl] 25 mg PO WE 12/09/18 [History] Ipratropium/Albuterol Sulfate [Iprat-Albut 0.5-3(2.5) mg/3 ml] 3 ml IH QID 5 Days #30 ampul.neb 12/11/18 [Rx] levoFLOXacin [Levaquin] 500 mg PO DAILY 4 Days #4 tab 12/11/18 [Rx] predniSONE [Prednisone] 40 mg PO DAILY 4 Days #8 tablet 12/11/18 [Rx] Oxygen Therapy Mode: Room Air Patient Handouts: Community-Acquired Pneumonia, Adult - Discharge Summary/Plan Comment DC Time >30 min.: Yes (45 minutes spent in care and coordination of discharge, > 50% face to face) - General Info Date of Service: 12/11/18 Admission Dx/Problem (Free Text: Suspected gram negative pneumonia Subjective Update: Patient reports she is feeling better today. Is requesting to be discharged home. She reports she just needs sleep and doesn't sleep well in hospital bed. She does continue to feel short of breath and has a tight nonproductive cough. Functional Status: Reports: Pain Controlled, Tolerating Diet, Ambulating, Urinating. Denies: New Symptoms - Review of Systems General: Reports: Fatigue. Denies: Fever, Chills Pulmonary: Reports: Shortness of Breath, Pleuritic Chest Pain, Cough, Wheezing. Denies: Sputum, Hemoptysis Cardiovascular: Reports: Dyspnea on Exertion Gastrointestinal: Reports: No Symptoms Genitourinary: Reports: No Symptoms Musculoskeletal: Reports: No Symptoms Skin: Reports: No Symptoms Neurological: Reports: No Symptoms Psychiatric: Reports: No Symptoms - Patient Data Vitals - Most Recent: Last Vital Signs Temp 97.4 F 12/11/18 08:00 Pulse 99 12/11/18 08:00 Resp 20 12/11/18 08:00 BP 139/82 12/11/18 08:00 Pulse Ox 95 12/11/18 08:00 Weight - Most Recent: 204 lb 11.2 oz I&O - Last 24 hours: Intake & Output 12/10/18 12/11/18 12/11/18 22:59 06:59 14:59 Intake Total 500 Balance 500 Lab Results - Last 24 hrs: Laboratory Results - last 24 hr 12/11/18 12/11/18 Range/Units 07:30 07:30 WBC 14.8 H (5.0-10.0) 10^3/uL RBC 4.19 (4.00-5.50) 10^6/uL Hgb 12.9 (12.0-16.0) g/dL Hct 38.8 (37.0-47.0) % MCV 92.6 (82.0-94.0) fL MCH 30.8 (27.0-32.0) pg MCHC 33.2 (33.0-38.0) g/dL RDW Coeff of Sil 13.3 (11.0-15.0) % Plt Count 229 (150-400) 10^3/uL Neut % (Auto) 80.6 (35-85) % Lymph % (Auto) 14.2 (10-55) % [place] % (Auto) 5.1 (0-16) % Eos % (Auto) 0 (0-5) % Baso % (Auto) 0.1 (0-3) % Neut # (Auto) 11.96 H (1.80-7.00) 10^3/uL Lymph # (Auto) 2.11 (1.00-4.80) 10^3/uL [place] # (Auto) 0.76 (0.00-0.80) 10^3/uL Eos # (Auto) 0.00 (0.00-0.45) 10^3/uL Baso # (Auto) 0.01 10^3/uL Sodium 142 (136-145) mEq/L Potassium 4.1 D (3.5-5.0) mEq/L Chloride 106 (98-106) mEq/L Carbon Dioxide 26 (21-32) mmol/L BUN 13 (7-18) mg/dL Creatinine 0.9 (0.6-1.0) mg/dL Est Cr Clr Drug Dosing 78.38 mL/min Estimated GFR (MDRD) > 60 (>=60) mL/min Glucose 132 H (75-99) mg/dL Calcium 9.4 (8.4-10.1) mg/dL C-Reactive Protein < 0.2 L (0.2-0.8) mg/dL Med Orders - Current: Current Medications Acetaminophen (Tylenol) 650 mg PO Q4H PRN PRN Reason: Pain (Mild 1-3)/fever Last Admin: 12/11/18 08:11 Dose: 650 mg Albuterol (Proventil Neb Soln) 2.5 mg NEB Q2H PRN PRN Reason: Shortness Of Breath/wheezing Albuterol/Ipratropium (Duoneb 3.0-0.5 Mg/3 Ml) 3 ml NEB QIDRT [facility] Last Admin: 12/11/18 11:41 Dose: Not Given Ceftriaxone Sodium (Rocephin) 1 gm IVPUSH Q24H [facility] Last Admin: 12/11/18 10:27 Dose: 1 gm Diphenhydramine HCl (Benadryl) 25 mg PO WE [facility] Enoxaparin Sodium (Lovenox) 30 mg SUBCUT Q24H [facility] Last Admin: 12/10/18 17:07 Dose: Not Given Azithromycin 500 mg/ Sodium (Chloride) 250 mls @ 250 mls/hr IV Q24H [facility] Last Admin: 12/11/18 10:33 Dose: 250 mls/hr Methylprednisolone Sodium Succinate (Solu-Medrol) 62.5 mg IVPUSH BID@0800,1600 [facility] Last Admin: 12/11/18 08:12 Dose: 62.5 mg Nicotine (Habitrol) 14 mg TRDERM DAILY [facility] Last Admin: 12/11/18 08:05 Dose: 14 mg Ondansetron HCl (Zofran Odt) 8 mg PO Q4H PRN PRN Reason: Nausea Pantoprazole Sodium (Protonix) 40 mg PO DAILY@0700 [facility] Last Admin: 12/11/18 07:03 Dose: 40 mg Pregabalin (Lyrica) 25 mg PO BID [facility] Last Admin: 12/11/18 08:04 Dose: 25 mg Sodium Chloride (Saline Flush) 10 ml FLUSH ASDIRECTED PRN PRN Reason: Keep Vein Open Temazepam (Restoril) 15 mg PO BEDTIME PRN PRN Reason: Sleep - Exam Quality Assessment: Reports: DVT Prophylaxis. Denies: Supplemental Oxygen General: Reports: Alert, Oriented, No Acute Distress Neck: Reports: Supple Lungs: Reports: Decreased Breath Sounds, Wheezing Cardiovascular: Reports: Regular Rate, Regular Rhythm, No Murmurs GI/Abdominal Exam: Normal Bowel Sounds, Soft, Non-Tender, No Organomegaly, No Distention, No Abnormal Bruit, No Mass, Pelvis Stable Back Exam: Reports: Normal Inspection, Full Range of Motion Extremities: Normal Inspection, Normal Range of Motion, Non-Tender, No Pedal Edema, Normal Capillary Refill Neurological: Reports: No New Focal Deficit Psy/Mental Status: Reports: Alert, Normal Affect, Normal Mood
[2018-12-15] MEDS ORDERED: diphenhydrAMINE 25 MG Cap PO SCH (09:00)
== END 2018-12-11 13:25 | disposition home or self-care (01) | DRG 179 ==
LOC: CC.MS 16:36 → UNDOADMIN 16:36 → CC.MS 17:09
PROVIDERS: ADMIT Family Medicine; ATTEND Family Medicine
DX: J15.6 Pneumonia due to other Gram-negative bacteria (principal); J44.9 Chronic obstructive pulmonary disease, unspecified; Z88.6 Allergy status to analgesic agent; M79.7 Fibromyalgia; Z79.899 Other long term (current) drug therapy
CPT/HCPCS: 36415; 71046; 80048; 85025; 86140; 94640; A9270-GY; J0456; J0696; J2930; J7050; J7620-GY